=== PATIENT | male | born 1960 | race Caucasian/White ===

== ENCOUNTER 2017-06-26 10:37 | Emergency (ER) | payer OTHER ==
[~2017-06-26] VITALS: Ht 182.9 cm; Wt 126.0 kg
[~2017-06-26 10:37] MED LIST: ASPEC81 PO; CARB100C2 PO; OMEG10007 PO; RMR15 PO
[2017-06-26 10:53] VITALS: Ht 182.9 cm; Wt 126.0 kg
[2017-06-26 12:16] VITALS: O2SAT 94
[2017-06-26] MEDS ORDERED: ATOR10TA82 PO (12:50)
[2017-06-26] MEDS ORDERED: CYAN10005 PO (12:50)
[2017-06-26] MEDS ORDERED: ASPI81TA28 PO (12:50)
[2017-06-26] MEDS ORDERED: CITA40TA4 PO (12:50)
[2017-06-26] MEDS ORDERED: ASCO1CAP3 PO (12:50)
[2017-06-26] MEDS ORDERED: LOSA1TAB PO (12:50)
[2017-06-26] MEDS ORDERED: MISCCAP80 PO (12:50)
[2017-06-26] MEDS ORDERED: MIRT45TA3 PO (12:50)
[2017-06-26 13:01] LABS: BASO % 0.7 %; BASO ABS # 0.04 K/uL (0-0.2); EOS % 2.3 %; EOS ABS # 0.14 K/uL (0-0.5); HEMATOCRIT 44.9 % (42-52); HEMOGLOBIN 15.6 g/dL (14.0-18.0); IG# 0.01 K/uL (0.00-0.02); LYMPH % 42.6 %; LYMPH ABS # 2.56 K/uL (1.2-3.4); MEAN CORPUSCULAR HEMOGLOBIN 29.9 pg (25-34); MEAN CORPUSCULAR HGB CONC 34.7 g/dl (32-36); MEAN PLATELET VOLUME 9.1 fL (7.4-10.4); MONO ABS # 0.42 K/uL (0.11-0.59); NEUT % 47.2 %; NEUT ABS # 2.84 K/uL (1.4-6.5); PLATELET COUNT 202 K/uL (130-400); RED CELL DISTRIBUTION WIDTH CV 12.7 % (11.5-14.5); RED CELL DISTRIBUTION WIDTH SD 40.4 fL (36.4-46.3); WHITE BLOOD COUNT 6.01 K/uL (4.8-10.8)
[2017-06-26] MEDS ORDERED: LOSARTAN POTASSIUM 25 MG TAB PO STA (13:14)
[2017-06-26 13:44] LABS: ALBUMIN 4.1 gm/dl (3.4-5.0); ALT/SGPT 46 U/L (12-78); AST/SGOT 29 U/L (15-37); BLOOD UREA NITROGEN 11 mg/dl (7-18); CALCIUM 8.8 mg/dl (8.5-10.1); CARBON DIOXIDE 27 mmol/L (21-32); GLUCOSE 111 mg/dl (70-99); POTASSIUM 4.1 mmol/L (3.5-5.1); SODIUM 140 mmol/L (136-145)
[2017-06-26 13:45] LABS: ALKALINE PHOSPHATASE 46 U/L (45-117); TOTAL PROTEIN 7.6 gm/dl (6.4-8.2)
--- NOTE | 2017-06-26 16:17 | EMERGENCY ROOM VISIT NOTE ---
History Report prepared by Fran: Alycia Dacosta Under the Supervision of: Dr. Anali Daniels D.O. First contact with patient: 12:03 Chief Complaint: HYPERTENSION Stated Complaint: HIGH BP 175/100 History of Present Illness The patient is a 57 year old male who presents to the Emergency Room with complaints of an episode of hypertension occurring this morning. The patient reports he was being seen by his psychiatrist this morning when his blood pressure was 175 systolically. He reports he was not nervous this morning when he was getting his blood pressure taken. He reports they only took his pressure on one arm. He then called his PCP who referred him to come to the ED. The patient reports his blood pressure usually runs around 120/70. He denies any changes in his medications. The patient takes blood pressure medication. Denies missing any doses. He reports he has been on his blood pressure medication for several years. He last had blood work was 2 months ago. He denies any symptoms with his episode hypertension. Pt denies headache, change in vision, fevers, chest pain, shortness of breath, nausea, vomiting, diarrhea, pain with urination, and melena. No recent swelling in the legs. He denies any cardiac history or family history of hypertension. Source of History: patient Onset: this morning Position: other (generalized) Quality: other (hypertension) Timing: other (episode) Associated Symptoms: No chest pain, No SOB, No nausea, No vomiting, No diarrhea Review of Systems See HPI for pertinent positives & negatives. A total of 10 systems reviewed and were otherwise negative. Past Medical & Surgical Medical Problems: (1) Hypertension Family History FH: diabetes mellitus Heart disease Lung disease Social History Smoking Status: Never Smoker Smokeless Tobacco Use: No Alcohol Use: none Housing Status: lives alone Occupation Status: unemployed Current/Historical Medications Scheduled Ascorbic Acid (Vitamin C), 500 MG PO QAM Aspirin (Aspirin Ec), 81 MG PO QAM Atorvastatin (Lipitor), 10 MG PO HS Carbamazepine (Tegretol), 100 MG PO BID Citalopram (Citalopram Hydrobromide), 40 MG PO QAM Cyanocobalamin (Vitamin B-12), 1,000 MCG PO QAM Fish Oil (Linden-3), 1 CAP PO QAM Losartan Potassium (Cozaar), 25 MG PO HS Mirtazapine (Mirtazapine), 45 MG PO HS Probiotic Product (Probiotic), 1 CAP PO QAM Allergies Coded Allergies: Penicillins (Verified Allergy, Unknown, 06/26/17) Physical Exam Vital Signs Date Time Temp Pulse Resp B/P (MAP) Pulse Ox O2 Delivery O2 Flow Rate FiO2 06/26/17 16:23 37.0 71 21 148/93 94 06/26/17 16:02 148/93 06/26/17 15:50 68 22 138/106 94 Room Air 06/26/17 15:09 69 19 176/103 93 Room Air 06/26/17 14:48 76 20 161/99 06/26/17 14:14 77 20 205/122 96 Room Air 06/26/17 12:39 74 180/126 94 Room Air 06/26/17 12:16 94 Room Air 06/26/17 12:15 70 20 170/119 94 Room Air 06/26/17 10:53 37.0 76 20 188/104 95 Room Air Physical Exam GENERAL: alert, well appearing, well nourished, no distress, non-toxic, obese EYE EXAM: normal conjunctiva, PERRL and EOM's grossly intact OROPHARYNX: no exudate, no erythema, lips, buccal mucosa, and tongue normal and mucous membranes are moist NECK: supple, no nuchal rigidity, no adenopathy, non-tender LUNGS: Clear to auscultation. Normal chest wall mechanics HEART: no murmurs, S1 normal and S2 normal ABDOMEN: abdomen soft, non-tender, normo-active bowel sounds, no masses, no rebound or guarding. BACK: Back is symmetrical on inspection and there is no deformity, no midline tenderness, no CVA tenderness. SKIN: no rashes and no bruising UPPER EXTREMITIES: upper extremities are grossly normal. FROM, nml pulses. LOWER EXTREMITIES: No pitting edema. FROM, nml pulses. NEURO EXAM: Normal sensorium, cranial nerves II-XII grossly intact, normal speech, no gross weakness of arms, no gross weakness of legs. No ataxia, no facial droop. Medical Decision & Procedures Laboratory Results 06/26/17 12:50 Red Blood Count 5.22, Mean Corpuscular Volume 86.0, Mean Corpuscular Hemoglobin 29.9, Mean Corpuscular Hemoglobin Concent 34.7, Mean Platelet Volume 9.1, Neutrophils (%) (Auto) 47.2, Lymphocytes (%) (Auto) 42.6, Monocytes (%) (Auto) 7.0, Eosinophils (%) (Auto) 2.3, Basophils (%) (Auto) 0.7, Neutrophils # (Auto) 2.84, Lymphocytes # (Auto) 2.56, Monocytes # (Auto) 0.42, Eosinophils # (Auto) 0.14, Basophils # (Auto) 0.04 06/26/17 12:50 Test 06/26/17 12:50 White Blood Count 6.01 K/uL (4.8-10.8) Red Blood Count 5.22 M/uL (4.7-6.1) Hemoglobin 15.6 g/dL (14.0-18.0) Hematocrit 44.9 % (42-52) Mean Corpuscular Volume 86.0 fL (80-100) Mean Corpuscular Hemoglobin 29.9 pg (25-34) Mean Corpuscular Hemoglobin Concent 34.7 g/dl (32-36) Platelet Count 202 K/uL (130-400) Mean Platelet Volume 9.1 fL (7.4-10.4) Neutrophils (%) (Auto) 47.2 % Lymphocytes (%) (Auto) 42.6 % Monocytes (%) (Auto) 7.0 % Eosinophils (%) (Auto) 2.3 % Basophils (%) (Auto) 0.7 % Neutrophils # (Auto) 2.84 K/uL (1.4-6.5) Lymphocytes # (Auto) 2.56 K/uL (1.2-3.4) Monocytes # (Auto) 0.42 K/uL (0.11-0.59) Eosinophils # (Auto) 0.14 K/uL (0-0.5) Basophils # (Auto) 0.04 K/uL (0-0.2) RDW Standard Deviation 40.4 fL (36.4-46.3) RDW Coefficient of Variation 12.7 % (11.5-14.5) Immature Granulocyte % (Auto) 0.2 % Immature Granulocyte # (Auto) 0.01 K/uL (0.00-0.02) Prothrombin Time 10.3 SECONDS (9.0-12.0) Prothromb Time International Ratio 1.0 (0.9-1.1) Anion Gap 7.0 mmol/L (3-11) Est Creatinine Clear Calc Drug Dose 161.6 ml/min Estimated GFR () 122.3 Estimated GFR (Non- 105.5 BUN/Creatinine Ratio 16.5 (10-20) Calcium Level 8.8 mg/dl (8.5-10.1) Total Bilirubin 0.4 mg/dl (0.2-1) Aspartate Amino Transf (AST/SGOT) 29 U/L (15-37) Alanine Aminotransferase (ALT/SGPT) 46 U/L (12-78) Alkaline Phosphatase 46 U/L (45-117) Troponin I < 0.015 ng/ml (0-0.045) Pro-B-Type Natriuretic Peptide 9 pg/ml (0-900) Total Protein 7.6 gm/dl (6.4-8.2) Albumin 4.1 gm/dl (3.4-5.0) Globulin 3.5 gm/dl (2.5-4.0) Albumin/Globulin Ratio 1.2 (0.9-2) Carbamazepine (Tegretol) Level 3.9 mcg/ml (4-12) Laboratory results per my review. Medications Administered Medications (Trade) Dose Ordered Sig/Gallo Route Start Time Stop Time Status Last Admin Dose Admin Losartan Potassium (coZAAR TAB) 25 mg NOW STAT PO 06/26/17 13:14 06/26/17 13:15 DC 06/26/17 13:44 25 MG ECG Per My Interpretation Indication: other (hypertension) Rate (beats per minute): 70 Rhythm: normal sinus Findings: no acute ischemic change, no ectopy ED Course 1204: The patient was evaluated in room B12A. A complete history and physical exam was performed. 1314: Ordered Losartan Potassium 25 mg PO. 1316: The patient's pressure is 180/124. He is asymptomatic. 1434: The patient is resting comfortably. 1458: His blood pressure is trending downwards. 1625: Upon reevaluation, the patient is feeling better. I discussed the findings and the treatment plan with the patient. He verbalizes agreement and understanding. He was discharged home. Medical Decision Differential diagnosis: Etiologies such as benign hypertension, hypertensive emergency, cardiovascular pathology, pheochromocytoma, electrolyte abnormality, renal disease, endorgan damage, as well as others were entertained. Patient presented with a symptomatic uncontrolled hypertension. No sx to suggest hypertensive urgency and no evidence of hypertensive emergency. Patient 's initial hypertensive readings were elevated compared to prior, however not significantly concerning for acute pathology. Patient asymptomatic prior to arrival and during ER observation. Given patient's last on labs were 8 months ago, repeats were drawn as a precaution. No evidence of renal dysfunction. EKG unremarkable. Patient's physical exam not consistent with ACS, dissection, AAA, nephrotic syndrome, acute kidney failure, CHF, CVA, intracranial hemorrhage. Patient well-appearing throughout. Patient given a single dose of his evening blood pressure medication. After approximately an hour patient's blood pressure began to improve. Discussed with patient taking his blood pressure medication twice a day in the interim until he is able follow-up with his family doctor. Patient on very low-dose single agent blood pressure control at this time. Discussed avoidance of salt in his diet, adequate hydration. Discussed symptoms to watch and return for, he verbalized understanding was agreeable with plan. Medication Reconcilliation Current Medication List: was personally reviewed by me Blood Pressure Screening Patient's blood pressure: Elevated blood pressure Blood pressure disposition: Referred to PCP Impression Primary Impression: Hypertension Scribe Attestation The scribe's documentation has been prepared under my direction and personally reviewed by me in its entirety. I confirm that the note above accurately reflects all work, treatment, procedures, and medical decision making performed by me. Departure Information Dispostion Home / Self-Care Referrals Salvador Bills D.O. (PCP) Forms HOME CARE DOCUMENTATION FORM, IMPORTANT VISIT INFORMATION, WORK / SCHOOL INSTRUCTIONS Patient Instructions Hypertension Control, My [facility] Additional Instructions Please call and follow-up with your family doctor to discuss your recent elevated blood pressure readings. Please begin taking your blood pressure medication twice a day. If you develop chest pain, trouble breathing, headaches , dizziness, vision changes, or you have any other new concerns, please return the emergency room. Please make sure you are drinking plenty of water. Please take your other medications as prescribed. Problem Qualifiers Primary Impression: Hypertension Hypertension type: essential hypertension Qualified Codes: I10 - Essential ( primary) hypertension
[2017-06-26 16:23] VITALS: BP 148/93; PULSE 71; TEMP 37; O2SAT 94
== END 2017-06-26 16:24 | disposition home or self-care (01) ==
LOC: C.EDB 10:39
DX: I10 Essential (primary) hypertension (principal); Z83.3 Family history of diabetes mellitus; Z79.82 Long term (current) use of aspirin; Z79.899 Other long term (current) drug therapy; Z88.0 Allergy status to penicillin; E66.9 Obesity, unspecified